=== PATIENT | female | born 1995 | race Caucasian/White ===

== ENCOUNTER 2018-11-01 15:45 | Emergency (ER) | payer SELFPAY ==
[2018-11-01 16:34] LABS: #Lymphocytes 2.2 thou/uL (1.20-3.40); #Monocytes 0.5 thou/uL (0.11-0.59); #Neutrophils 6.1 thou/uL (1.40-6.50); %Basophils 0.1 % (0.0-1.0); %Eosinophils 0.5 % (0.0-10.0); %Lymphocytes 25.1 % (21.0-51.0); %Monocytes 5.9 % (0.0-10.0); %Neutrophils 68.4 % (42.0-75.0); Mean Corpuscular HGB CONC 33.4 g/dL (32.0-36.0); Mean Corpuscular Volume 80.9 fL (78.0-98.0); Mean Platelet Volume 6.9 fL (7.4-10.4); Platelet Count 262 thou/uL (130-400); Red Blood Cell (RBC) Count 4.82 mill/uL (4.20-5.40); White Blood Cell (WBC) Count 8.9 thou/uL (4.8-10.8)
[2018-11-01 16:50] LABS: BHCG - Serum POSITIVE (NEGATIVE); Pregs Control Background? CLEAR/WHITE (CLR/WHITE); Pregs Control Bar Appear? YES (CONTROL BAR)
--- NOTE | 2018-11-01 17:54 | ULT ---
FEXAM: Transabdominal and transvaginal pelvic ultrasound with Doppler PROVIDED CLINICAL HISTORY: Pelvic pain, positive test COMPARISON: None FINDINGS: Uterus measures about 9.0 x 4.3 x 4.7 cm and demonstrates an unremarkable appearance to the uterine m yometrium. The contents of the endometrial canal appear unremarkable. The right and left ovaries demonstrate an unremarkable sonographic appearance. Grayscale and color Do ppler sonography with spectral analysis demonstrates flow bilaterally. No evidence for free pelvic fl uid. IMPRESSION: No evidence for an acute process. No evidence for an intrauterine gestational sac. Correlate with ser ial beta hCG values.
[2018-11-04 17:06] LABS: Chlamydia by PCR Not Detected (NotDetected); GC by PCR Not Detected (NotDetected)
== END 2018-11-01 19:38 | disposition home or self-care (01) ==
LOC: ERS 15:45
DX: O03.9 Complete or unspecified spontaneous abortion without complication (principal)
CPT/HCPCS: 36415; 76856; 84702; 84703; 85025; 86900; 86901; 87480; 87510; 87660